=== PATIENT | male | born 1955 | race Caucasian/White ===

== ENCOUNTER 2016-07-06 00:26 | Inpatient (IN) | payer MEDICARE, OTHER ==
--- NOTE | ~2016-07-06 | HP ---
Unit #: [id number] #: [id number] Patient: JULIO C KONG [id number] [address] [address] [id number] I MR#: [id number] NAME: JULIO C KONG ROOM: 331 Age: 60 Sex: M Admission Date: 07/06/2016 : 1955 Attending Physician: Lizeth Bridges M.D. Primary Care Physician: Tammy Mitchell M.D. HISTORY AND PHYSICAL CHIEF COMPLAINT Symptomatic ascites. HISTORY This 60-year-old type 2 diabetic male with CAD, chronic kidney disease, hypertension, was transferred from [facility] emergency department for symptomatic ascites. The patient, himself, is only a fair historian. Apparently he does develop intermittent ascites requiring paracentesis. He was last admitted to [facility] in March. Unfortunately, he has never been admitted to this facility in the past and we have no old records on file, nor were old records sent from [facility]. He tells me that three weeks ago he developed increasing abdominal swelling. He noticed some poor p.o. intake, mild cough with the above. He went to [facility] emergency department where he was noted to have symptomatic ascites. PAST MEDICAL HISTORY 1. CAD, status post CABG, PFO closure and AICD placement. The patient does have a history of atrial fibrillation and is anticoagulated. 2. BPH. 3. Chronic kidney disease. 4. Hyperlipidemia. 5. Hypertension. 6. COPD. 7. AODM. 8. Gout. 9. DJD. 10. Peripheral vascular disease. 11. Left leg surgery. ALLERGIES No known drug allergies. HOME MEDICATIONS I have a list without doses. This list includes: 1. Potassium chloride, one each day. 2. Synthroid daily. 3. Calcitriol daily. 4. Omeprazole, two tablets daily. 5. Flomax 0.4 mg b.i.d. 6. Metoprolol 25 mg daily. 7. Lipitor daily. 8. Coumadin, uncertain dose. Unit #: [id number] #: [id number] Patient: JULIO C KONG 9. Aspirin daily. 10. Iron sulfate b.i.d. 11. Magnesium b.i.d. 12. Bumex 1 mg t.i.d. FAMILY HISTORY Negative for CAD. SOCIAL HISTORY The patient lives alone. He drank in the past but no alcohol for at least 13 years. He is a lifelong nonsmoker. REVIEW OF SYSTEMS Notable for increasing abdominal swelling, CAD, above mentioned surgeries, BPH, chronic kidney disease, hyperlipidemia, hypertension, COPD, diabetes, gout, DJD, peripheral vascular disease. All other systems were reviewed and are negative. REVIEW OF SYSTEMS Notable for cough, fever, shortness of breath, PTSD, aortic insufficiency, anxiety, depression, reflux, asthma, DJD, JOSÉ, hypertension, T and A, D and C, hysterectomy, cholecystectomy, T and A. All other systems reviewed are negative. PHYSICAL EXAMINATION GENERAL APPEARANCE: Pleasant, somewhat obese 60-year-old male, currently in no acute distress. VITAL SIGNS: Blood pressure 106/60, O2 saturation 96%, heart rate 74, respirations 18. HEENT: Eyes PERRLA. Extraocular muscles are intact. Pharynx is benign. NECK: Supple without adenopathy or thyromegaly. CHEST: Diminished breath sounds. CARDIAC: Normal S1 and S2. Soft systolic murmur. ABDOMEN: Bowel sounds are present. Fluid wave is present. Distended abdomen with ascites but nontender. No hepatosplenomegaly or masses. EXTREMITIES: With chronic venous stasis changes. Pedal pulses are markedly diminished. No ulcers on the feet. NEUROLOGIC EXAM: The patient is awake, alert, oriented. Cranial nerves are intact. Equal strength throughout. DIAGNOSTIC STUDIES LABORATORY: Labs prior to transfer - hematocrit 37.4, white blood count 3.5, normal platelet count. INR is 1.35, BNP 1628. SMA-12 - creatinine 2.2, glucose 168, BUN 39. IMAGING: Chest x-ray - mild vascular congestion. EKG revealed a ventricular paced rhythm, rate 76. ASSESSMENT 1. Symptomatic ascites: The patient requires intermittent paracentesis. I believe the ascites is related to his cardiac and kidney disease. The patient usually is admitted to [facility]. Will obtain records. 2. Chronic kidney disease. 3. Coronary artery disease, status post automatic implantable cardioverter defibrillator, coronary artery bypass graft, on Coumadin Unit #: [id number] #: [id number] Patient: JULIO C KONG for history of atrial fibrillation. 4. Gout. 5. Benign prostatic hypertrophy. 6. Adult onset diabetes mellitus. 7. Hypothyroidism. PLANS 1. Need old records. 2. Large volume paracentesis in the morning. 3. Recheck labs in the morning and check coags. 4. Verify home medicines. Dictated by Satnam Colbert/liseth TD: 07/06/2016 06:52 JOB #: [id number] HISTORY AND PHYSICAL Page 1 of 1 X Lizeth Bridges MD X HISTORY AND PHYSICAL
--- NOTE | ~2016-07-06 | CO ---
Unit #: [id number] #: [id number] Patient: JULIO C KONG [id number] [facility]. [place], [place] [address] [id number] I MR#: [id number] NAME: JULIO C KONG ROOM: 331 Age: 60 Sex: M Admission Date: 07/06/2016 : 1955 Attending Physician: Anuja Mccollum M.D. Primary Care Physician: Tammy Mitchell M.D. Consultation Date: 07/07/2016 CONSULTATION REPORT REASON FOR CONSULTATION Chronic kidney disease. HISTORY OF PRESENT ILLNESS Mr. Kong is a 60-year-old gentleman. We are asked to evaluate for renal failure. He was admitted to this hospital on 07/06/2016 with complaints of symptomatic ascites, which has been attributed to his advanced heart and kidney failure. He has had recurrent paracentesis before. From a Renal standpoint, the patient reports he has been aware of having kidney disease for approximately 7 years. He was in [place], [place] and used to follow with Dr. Ezekiel Varela, a load manager who had a practice there. Since he left [place], the patient reports he has been unable to make the trips in to [place] to see a load manager there. [facility] had seen him on several occasions when he has been admitted to [facility] for cardiovascular issues. He does not see a load manager in the outpatient setting. He reports that he has had diabetes for approximately 12 years and his brother was on dialysis. He reports he has had a kidney and/or bladder infection at one point, but otherwise he has not experienced stones or other complications that is aware of related to his kidneys. He has occasionally taken nonsteroidals in the past for pain. At the time of this admission, he reports that he has not been given any kidney related problems except for his accumulating fluid. PAST MEDICAL HISTORY Significant for: 1. Acute on chronic systolic and diastolic heart failure with right-sided heart failure and severe pulmonary hypertension. He was admitted to [facility] in 03/2016 and found to have ejection fraction of approximately 22%. He was then felt to be a candidate for transplantation or VAD. 2. Permanent atrial fibrillation with an implanted pacemaker. 3. Recurrent ascites related to above. 4. Valvular heart disease with a history of prior mitral valve repair, which he reports was done at [facility]. 5. Pulmonary hypertension. 6. Dyslipidemia. 7. Hypertension. 8. History of nonsustained ventricular tachycardia. 9. Stage 3 chronic kidney disease with a cardiorenal component. 10. Type 2 diabetes mellitus. 11. Obesity. 12. Peripheral arterial disease, status post left peroneal atherectomy and Unit #: [id number] #: [id number] Patient: JULIO C KONG left posterior tibial atherectomy/angioplasty. 13. Gout. 14. History of upper GI bleed. 15. Sleep apnea. 16. COPD. 17. Coronary artery disease. 18. Hypothyroidism. FAMILY HISTORY Significant for diabetes mellitus in brother who is on dialysis. Sister with history significant for alcohol use in the past, but not currently. SOCIAL HISTORY He does not smoke. MEDICATIONS AT ADMISSION Included potassium chloride, Synthroid, calcitriol, omeprazole, Flomax, metoprolol, Lipitor, Coumadin, aspirin, iron sulfate, magnesium, and Bumex 1 mg t.i.d. REVIEW OF SYSTEMS Notable for progressive abdominal swelling. He has had some mild shortness of breath. He has chronic leg swelling and occasional tingling, which he attributes to gout. PHYSICAL EXAMINATION GENERAL: At the time of evaluation, he appeared sitting comfortably in bed. He was awake, alert, and very appropriate. I used a translating phone service to interview the patient. VITAL SIGNS: At the time of evaluation, he was afebrile at 97.4 with blood pressure of 96/60 with heart rate of 69 and a respiratory rate of 18, his O2 saturations on room air were 97%. HEENT: Head was normocephalic and atraumatic. Pupils are equal and reactive. Sclera and conjunctiva were clear. NECK: Supple without adenopathy. There was no jugular venous distention. LUNGS: Clear to auscultation bilaterally. HEART: Had a regular rate with diffuse 3/6 murmur over the precordium. He was noted to have a paced rhythm on the monitor. He had a sternal scar consistent with a prior open heart procedure. ABDOMEN: Distended and protuberant. His umbilicus was distended also. It was soft and nontender. No masses or organomegaly could be defined. GENITAL: Deferred. EXTREMITIES: Show chronic stasis changes with a woody feeling to the skin and evidence of prior scarring. He had approximately 1+ edema. SKIN: Unremarkable except for the stasis changes in his lower extremities. No other wounds or rashes were noted. NEUROLOGIC: Unremarkable. DIAGNOSTIC STUDIES LABORATORY RESULTS: At time of admission were notable for serum creatinine of 2.0 with BUN of 34. Electrolytes were notable for serum potassium of 3.8 and bicarbonate of 30. His albumin was low at 2.7. His hemoglobin was mildly anemic with 11.4 with white count of 3.1 and platelet count of 135,000. No urine studies are currently available. Through [facility]'s EMR, we have laboratory data dating back to 2013. Most of the period of time, his serum creatinine has been running in the mid to high 3s. At the time of his last discharge on 04/05/2016, his serum Unit #: [id number] #: [id number] Patient: JULIO C KONG creatinine was 2.79. By comparison, his serum creatinine on this admission is better. The elevated BUN and creatinine ratio is suggestive of a prerenal type picture consistent with his advanced heart failure. His serum bicarbonate typically runs in the high 20s to low 30s again consistent with diabetic use and limited cardiac output. The patient does not appear to be nephrotic based on limited studies in 09/2015. However, back in 2013, he was known to have microalbuminuria. We do not have recent values available to us. A renal ultrasound done in 09/2015 was notable for decent sized kidney of approximately 11.5 and 10 cm respectively. He was noted to have a cyst in the right kidney, but otherwise no significant anatomic issues. There was suggestion of increased cortical atrophy consistent with chronic renal disease. A CT scan done in 03/2016 confirmed the findings of a 2.9 cm diameter cyst in the right kidney, but otherwise again no significant renal pathology. IMPRESSION 1. Chronic kidney disease related to diabetes mellitus and cardiorenal syndrome. At this point in time, his renal function appears relatively stable and somewhat improved compared to his recent past history. Given his severe heart failure and severe pulmonary hypertension, volume accumulation will be of ongoing process. At the moment peripherally, this appears relatively decent. It is noted that he has required recurrent paracentesis. From a Renal standpoint, I would maintain his current diuretics. I would fear that pushing him too hard would put him in to a more severe prerenal syndrome and perhaps trigger an acute kidney injury. It may be worthwhile to set up for periodic paracentesis in an outpatient setting in [place], [place]. 2. Heart failure. Again, this appears reasonably stable. 3. Recurrent paracentesis. It is noted that the patient has had abdominal paracentesis at this visit. 4. Diabetes. This is another significant risk factor. Currently, managed by PCP in [place], [place]. Dictated by... Doyle Manzanares M.D. ANSON/alan TD: 07/07/2016 23:41 JOB #: [id number] CONSULTATION REPORT Page 1 of 1 X Doyle Manzanares Jr, MD X CONSULTATION REPORT
--- NOTE | ~2016-07-06 | DS ---
Unit #: [id number] #: [id number] Patient: JULIO C KONG [id number] [address] [address] [id number] I MR#: [id number] NAME: JULIO C KONG ROOM: 331 Age: 60 Sex: M Admission Date: 07/06/2016 : 1955 Discharge Date: Attending Physician: Anuja Mccollum M.D. Primary Care Physician: Tammy Mitchell M.D. DISCHARGE SUMMARY DISCHARGE DIAGNOSES 1. Symptomatic ascites requiring intermittent paracentesis. He had a paracentesis here and 13.2 L has been removed. 2. Chronic kidney disease most likely stage 3. 3. Coronary artery disease, status post automatic implant double cardioverter defibrillator. 4. Coronary artery bypass graft. 5. Atrial fibrillation on Coumadin, subtherapeutic international normalized ratio. Coumadin was on hold secondary to paracentesis on admission. 6. Gout. 7. Benign prostatic hypertrophy. 8. Diabetes mellitus type 2, uncontrolled. 9. Hypothyroidism. CONSULTATION Dr. Manzanares. PROCEDURE The patient had a paracentesis and 11.2 L has been removed. DIAGNOSTIC STUDIES LABORATORY: Sodium 142, potassium 3.8, creatinine 2. Liver enzymes normal. Albumin 2.7. Magnesium 2.1. INR 1.4. WBC 3.1, hemoglobin 11.4, platelets 135,000. Troponins 0.08. ALLERGIES None. DISCHARGE MEDICATIONS 1. Flomax 0.4 p.o. b.i.d. 2. Toprol XL 25 p.o. daily. 3. Bumex 1 mg p.o. three times daily. 4. Lipitor 20 daily. 5. Aspirin 81 daily. 6. Protonix 40 daily. 7. Levothyroxine 0.075 mg p.o. daily. 8. Calcitriol 0.25 mcg p.o. daily. 9. Coumadin 5 mg daily. HOSPITALIZATION COURSE A 60 year old admitted because of ascites. Ascites: Symptomatic problem. The patient had a paracentesis, 13.2 L Unit #: [id number] #: [id number] Patient: JULIO C KONG removed, most likely secondary to his kidney disease. He usually follows at [facility]. Chronic kidney disease, stage 3: Stable. Atrial fibrillation: Subtherapeutic INR. Continue Coumadin. I gave prescription for that. Hypothyroidism: Continue with levothyroxine. Diabetes mellitus type 2: Diet controlled. Currently, his sugars are 86. DISCHARGE INSTRUCTIONS The patient will be discharged home with home health. PT/INR check daily for three days, follow with family physician with result. I discussed with Dr. Manzanares. He said to continue with Bumex 1 mg three times daily. Follow with family physician in one week time. Follow with his neurologist in two weeks' time. Discharge time taken is 31 minutes. Dictated by... Anuja Mccollum M.D. Cahrity TD: 07/07/2016 16:49 JOB #: [id number] DISCHARGE SUMMARY Page 1 of 1 X Anuja Mccollum MD X DISCHARGE SUMMARY
--- NOTE | ~2016-07-06 | XA170 ---
[facility] A Service of [facility] & [facility] RADIOLOGY TEXT RESULTS PATIENT: JULIO C KONG LOCATION: C3A 331- : 54 UNIT #: [id number] AGE: [address]: Anuja Mccollum MD SEX: M ORDER DR: [id number] [facility]. [place], [place] [address] [id number] I MR#: [id number] Acc #: [id number] NAME: JULIO C KONG : 1955 SEX: M STUDY DATE/TIME: 07/06/2016 13:14 UNIT: C3A PCU ROOM: [facility] STUDY DESCRIPTION: XA Paracentesis W Image Attending Physician: Anuja Mccollum M.D. Ordering Physician: Lizeth Bridges M.D. Primary Care Physician: Tammy Mitchell M.D. MEDICAL IMAGING REPORT This report is preliminary unless electronic signature is present EXAM Ultrasound-guided paracentesis INDICATION Ascites PROCEDURE The risks, benefits, and alternatives to the procedure were explained to the patient and signed, informed consent was obtained. He was placed supine on the stretcher. A preliminary ultrasound of the abdomen was performed which demonstrated a large volume of ascites. This image was permanently saved. Overlying skin was marked. Patient was prepped and draped in the usual sterile fashion. Time-out was performed as per protocol. Skin and subcutaneous tissues were anesthetized with buffered lidocaine. Yueh catheter was advanced with aspiration of serous material. Catheter was hooked to suction tubing. There was evacuation of a total of 13.2 L of serous material. Catheter was then removed and manual pressure was applied until hemostasis was obtained. Patient tolerated the procedure well and there were no immediate complications. IMPRESSION Technically successful ultrasound guided paracentesis with evacuation of 13.2 L of serous material. Ultrasound was used during the procedure permanent images were saved. Dictated by... Bere Machado M.D. THIS IS AN ELECTRONICALLY VERIFIED REPORT Bere Machado M.D. at 07/07/2016 4:38 PM AFF/jw TD: 07/07/2016 09:33 [facility] A Service of [facility] RADIOLOGY TEXT RESULTS PATIENT: JULIO C KONG LOCATION: [facility] 331-01 : 54 UNIT #: [id number] AGE: [address]: Anuja Mccollum MD SEX: M ORDER DR: JOB #: [id number] MEDICAL IMAGING REPORT Page 1 of 1 COPY
[2016-07-06 08:27] LABS: BASOPHIL% 1.1 % (0-2.5); DIFF IND NO; EOSINOPHIL# 0.1 X10e3 (0-0.7); HEMATOCRIT 34.6 % (38.0-50.0); HEMOGLOBIN 11.1 gm/dL (13.0-16.0); LYMPHOCYTE# 0.5 X10e3 (1.0-3.5); LYMPHOCYTE% 14.2 % (17.0-45.0); MEAN CELL VOLUME 88.2 FL (83-96); MEAN CORPUSCULAR HEMOGLOBIN 28.2 PG (28-34); MEAN PLATELET VOLUME 8.3 FL (6.5-11.5); MONOCYTE# 0.2 X10e3 (0-1.0); MONOCYTE% 6.2 % (3.0-12.0); NEUTROPHIL# 2.4 X10e3 (1.5-7.1); NEUTROPHIL% 75.5 % (40-75); PLATELET COUNT 141 X10e3 (140-420); RED BLOOD COUNT 3.93 X10e (3.90-5.60); RED CELL DISTRIBUTION WIDTH 17.2 % (11.0-15.5); WHITE BLOOD COUNT 3.2 X10e3 (4.0-10.5)
[2016-07-06 08:44] LABS: INR 1.4; PARTIAL THROMBOPLASTIN TIME 28.1 SECONDS (23.5-31.3); PROTHROMBIN TIME (PATIENT) 14.8 SECONDS (9.6-11.5)
[2016-07-06 09:07] LABS: ALBUMIN SERUM 3.3 g/dL (3.5-5.0); BILIRUBIN,TOTAL 0.8 mg/dL (0.2-2.0); BUN/CREATININE RATIO 17.61; CALCIUM SERUM 8.8 mg/dL (8.4-10.2); CREATININE SERUM 2.1 mg/dL (0.6-1.4); GLOM FILT RATE Estimated 34.3 mL/min (>60); POTASSIUM 3.6 mmol/L (3.5-5.1); PROTEIN TOTAL SERUM 7.1 g/dL (6.0-8.3)
[2016-07-06 12:13] LABS: MB 2.6 ng/ml
[2016-07-06 15:27] LABS: BF TOTAL NUCLEATED CELL COUNT 322 CMM (0-100); BODY FLUID APPEARANCE CLEAR; BODY FLUID SOURCE ASCITES
[2016-07-06 15:34] LABS: BODY FLUID RBC <10000 CMM
[2016-07-07 08:04] LABS: HEMATOCRIT 36.4 % (38.0-50.0); HEMOGLOBIN 11.4 gm/dL (13.0-16.0); MEAN CELL VOLUME 88.7 FL (83-96); MEAN CORPUSCULAR HEMOGLOBIN 27.8 PG (28-34); MEAN CORPUSCULAR HGB CONC 31.4 g/dL (30-36); MEAN PLATELET VOLUME 8.8 FL (6.5-11.5); RED BLOOD COUNT 4.1 X10e (3.90-5.60); RED CELL DISTRIBUTION WIDTH 16.7 % (11.0-15.5); WHITE BLOOD COUNT 3.1 X10e3 (4.0-10.5)
[2016-07-07 08:15] LABS: INR 1.4; PROTHROMBIN TIME (PATIENT) 14.7 SECONDS (9.6-11.5)
[2016-07-07 08:29] LABS: ALBUMIN SERUM 2.7 g/dL (3.5-5.0); BILIRUBIN,TOTAL 1.1 mg/dL (0.2-2.0); CALCIUM SERUM 8.7 mg/dL (8.4-10.2); GLOM FILT RATE Estimated 36.3 mL/min (>60); MAGNESIUM 2.1 mg/dL (1.6-3.0); PHOSPHOROUS 3.6 mg/dL (2.5-4.6); POTASSIUM 3.8 mmol/L (3.5-5.1)
[2016-07-07 14:41] LABS: URINE APPEARANCE CLEAR; URINE BILIRUBIN NEG (NEG); URINE BLOOD NEG (NEG); URINE COLOR YELLOW; URINE GLUCOSE NEG (NEG); URINE KETONE NEG (NEG); URINE LEUKOCYTE ESTERASE NEG (NEG); URINE NITRATE NEG (NEG); URINE PROTEIN NEG (NEG); URINE SPECIFIC GRAVITY 1.008 (1.003-1.035); URINE UROBILINOGEN 0.2 MG/DL (NEG)
[2016-07-07 14:50] LABS: CREATININE,RANDOM URINE 31 mg/dL; POTASSIUM,URINE RANDOM 21 mmol/L; SODIUM URINE RANDOM 97 mmol/L; TOTAL PROTEIN,RANDOM URINE <10 mg/dl (<10)
[2016-07-07] MEDS ORDERED: TOPROL XL PO (16:29)
[2016-07-07] MEDS ORDERED: FLOMAX0.4 M1 PO (16:29)
[2016-07-07] MEDS ORDERED: LIPITOR20 MG PO (16:30)
[2016-07-07] MEDS ORDERED: BUMETANIDE2 M1 PO (16:30)
[2016-07-07] MEDS ORDERED: ASPIRIN81 M2 PO (16:31)
[2016-07-07] MEDS ORDERED: LEVOTHYROXINE75 MCG PO (16:31)
[2016-07-07] MEDS ORDERED: PROTONIX PO (16:31)
[2016-07-07] MEDS ORDERED: COUMADIN5 MG PO (16:32)
[2016-07-07] MEDS ORDERED: CALCITRIOL0.25 MCG PO (16:32)
[2016-08-06] MEDS ORDERED: FERRO-TIME325 MG PO (04:27)
[2016-08-06] MEDS ORDERED: MAG-OXIDE400 MG PO (04:28)
[2016-08-06] MEDS ORDERED: VITAMIN D31000 UNIT PO (04:29)
[2016-08-06] MEDS ORDERED: POTASSIUM CHLO10 MEQ PO (05:02)
== END 2016-07-07 17:47 | disposition home health service (06) | DRG 948 ==
LOC: C3A PCU 00:26
PROVIDERS: Internal Medicine
PROC: 0W9G30Z Drainage of Peritoneal Cavity with Drainage Device, Percutaneous Approach (ICD-10-PCS; 2016-07-06)
PROC: 3E0234Z Introduction of Serum, Toxoid and Vaccine into Muscle, Percutaneous Approach (ICD-10-PCS; principal; 2016-07-07)
DX: R18.8 Other ascites (principal); I47.2 Ventricular tachycardia; E11.22 Type 2 diabetes mellitus with diabetic chronic kidney disease; I13.0 Hypertensive heart and chronic kidney disease with heart failure and stage 1 through stage 4 chronic kidney disease, or unspecified chronic kidney disease; I50.42 Chronic combined systolic (congestive) and diastolic (congestive) heart failure; I25.10 Atherosclerotic heart disease of native coronary artery without angina pectoris; Z95.1 Presence of aortocoronary bypass graft; Z95.810 Presence of automatic (implantable) cardiac defibrillator; N40.0 Benign prostatic hyperplasia without lower urinary tract symptoms; J44.9 Chronic obstructive pulmonary disease, unspecified; M19.90 Unspecified osteoarthritis, unspecified site; I73.9 Peripheral vascular disease, unspecified; Z79.82 Long term (current) use of aspirin; M10.9 Gout, unspecified; E03.9 Hypothyroidism, unspecified; I48.2 Chronic atrial fibrillation; I27.2 Other secondary pulmonary hypertension; E78.5 Hyperlipidemia, unspecified; N18.3 Chronic kidney disease, stage 3 (moderate); E66.9 Obesity, unspecified; Z23 Encounter for immunization; E11.65 Type 2 diabetes mellitus with hyperglycemia; Z79.84 Long term (current) use of oral hypoglycemic drugs; Z68.37 Body mass index [BMI] 37.0-37.9, adult
CPT/HCPCS: 80053; 81003; 82043; 82436; 82550; 82553; 82570; 82947; 83735; 84100; 84133; 84156; 84300; 84484; 85025; 85027; 85610; 85730; 87070; 87205; 89051; 90688; 94760

== ENCOUNTER 2016-08-06 05:45 | Inpatient (IN) | payer MEDICARE, OTHER ==
--- NOTE | ~2016-08-06 | US8 ---
[facility] A Service of [facility] & [facility] RADIOLOGY TEXT RESULTS PATIENT: JULIO C KONG LOCATION: [facility] 560-01 : 54 UNIT #: [id number] AGE: [address]: Cheikh Car MD SEX: M ORDER DR: [id number] [facility] [address] [facility]. [place], [place] [address] [id number] I MR#: [id number] Acc #: [id number] NAME: JULIO C KONG : 1955 SEX: M STUDY DATE/TIME: 08/06/2016 12:37 UNIT: [facility] ROOM: [facility] STUDY DESCRIPTION: US Abdominal Wall/Quadrant Attending Physician: Anuja Mccollum M.D. Ordering Physician: Anuja Mccollum M.D. Primary Care Physician: Tammy Mitchell M.D. MEDICAL IMAGING REPORT This report is preliminary unless electronic signature is present EXAM Abdominal wall quadrant ultrasound. DATE OF EXAM 08/06/2016 at 1237 hours. INDICATIONS Abdominal distension. Evaluate for ascites. FINDINGS Limited evaluation was obtained in the 4 quadrants of the abdomen. The study demonstrates a large volume of ascites. IMPRESSION Large volume of ascites is present in all 4 quadrants. Dictated by... Sharath Hampton Jr., M.D. THIS IS AN ELECTRONICALLY VERIFIED REPORT Sharath Hampton Jr., M.D. at 08/09/2016 8:00 AM AASHISH/adela TD: 08/06/2016 16:05 JOB #: [id number] MEDICAL IMAGING REPORT Page 1 of 1 COPY
--- NOTE | ~2016-08-06 | DS ---
Unit #: [id number] #: [id number] Patient: JULIO C KONG [id number] [address] [place], [place] [address] [id number] I MR#: [id number] NAME: JULIO C KONG ROOM: 560 Age: 60 Sex: M Admission Date: 08/06/2016 : 1955 Discharge Date: 08/10/2016 Attending Physician: Cheikh Car M.D. Primary Care Physician: Tammy Mitchell M.D. DISCHARGE SUMMARY FOREPART RASPER Dr. Wild Daniels. PROCEDURES DONE EGD, colonoscopy, and ultrasound-guided paracentesis. EGD and colonoscopy findings were essentially normal in this hospitalization. ADMITTING DIAGNOSIS 1. Anemia, possibly thought to be iron deficiency with suspected blood loss versus secondary to chronic kidney disease. 2. Other medical problems include: History of symptomatic ascites requiring intermittent paracentesis, CKD stage 3, history of coronary artery disease status post AICD placement, history of CABG, history of AFib currently on anticoagulation at the time of hospitalization, gout, BPH, diabetes mellitus type 2, hypothyroidism, peripheral vascular disease surgery, and left leg surgery. HISTORY OF PRESENTING ILLNESS Patient is a 60-year-old man admitted with a chief complaint of black stools. Initially, it was thought to be secondary to GI bleed. He was seen by Dr. Daniels, gastroenterology. He had EGD and colonoscopy, which came back essentially normal. He was transfused blood. His hemoglobin is stable at this point around 7.7 on the day of the discharge. On the initial hospitalization, it was 5.9. Dr. Daniels thought it was not secondary to GI bleed and thought it was secondary to chronic kidney disease. He was given iron infusions for three days. He also had an ultrasound-guided paracentesis. The patient tolerated the procedure of ultrasound-guided paracentesis well. He is doing clinically stable. I spoke with Dr. Daniels. He recommended the patient to be okay to be discharged. I spoke with the patient at length and he is agreeable to go home. Will get his third dose of iron infusion today and requested him to follow with his primary care. DIAGNOSTIC STUDIES LABORATORY: His diagnostic workup on the day of the discharge includes glucose of 123, BUN 28, creatinine 1.7, and albumin 2.6. WBC 4, hemoglobin 7.7, and platelet count is 171. PHYSICAL EXAMINATION On the day of the discharge, his physical examination: VITAL SIGNS: Temperature 98.2, pulse rate 72, respirations 22, and blood pressure 94/51. GENERAL APPEARANCE: Patient is alert and oriented x3. Lying in the bed. No acute distress. Unit #: [id number] #: [id number] Patient: JULIO C KONG HEENT: Normocephalic and atraumatic. No icterus. PERRLA. Extraocular movements intact. NECK: Supple. No JVD. HEART: S1 and S2 irregular. ABDOMEN: Soft and nontender. EXTREMITIES: Edema present. DISCHARGE MEDICATIONS His discharge medications include: 1. Flomax 0.4 mg twice a day. 2. Magnesium oxide 800 mg twice a day. 3. I am holding his Coumadin, mainly because of his anemia and thought to be secondary to GI bleed. 4. Bumex 2 mg was changed to 1 mg p.o. 3 times a day. 5. Lipitor 20 mg at bedtime. 6. Ferrous sulfate 1 tab p.o. b.i.d. 7. Aspirin 81 mg daily. 8. Protonix 40 mg daily. 9. Synthroid 75 mcg daily. 10. KCl 10 mg p.o. daily. 11. Rocaltrol 0.25 mcg daily. 12. Vitamin D3 1000 units p.o. every day. 13. Metoprolol XL 25 mg p.o. daily. All the discharge instructions were explained in detail with the patient. I spoke with the complex case manager and requested her to arrange for transportation for him. Total time spent on this case: 35 minutes. Dictated by... Satnam Becerril TD: 08/11/2016 09:17 JOB #: [id number] DISCHARGE SUMMARY Page 1 of 1 X X DISCHARGE SUMMARY
--- NOTE | ~2016-08-06 | XA170 ---
[facility] A Service of [facility] RADIOLOGY TEXT RESULTS PATIENT: JULIO C KONG LOCATION: C5B 560-01 : 54 UNIT #: [id number] AGE: [address]: Cheikh Car MD SEX: M ORDER DR: [id number] [facility]. [place], [place] [address] [id number] I MR#: [id number] Acc #: [id number] NAME: JULIO C KONG : 1955 SEX: M STUDY DATE/TIME: 08/08/2016 7:49 UNIT: C5B ROOM: [facility] STUDY DESCRIPTION: XA Paracentesis W Image Attending Physician: Cheikh Car M.D. Ordering Physician: Anuja Mccollum M.D. Primary Care Physician: Tammy Mitchell M.D. MEDICAL IMAGING REPORT This report is preliminary unless electronic signature is present EXAM Ultrasound-guided paracentesis HISTORY Refractory and recurrent ascites. PROCEDURE Procedure, attendant risks, and options were discussed with Mr. Kong. He understands and wishes to proceed. He has had the procedure performed previously at this institution most recently on July 06. Ultrasound study was performed. The left side of the abdomen was chose and skin was prepped with Chlorhexidine solution and draped with a sterile drape. Utilizing maximal sterile barrier technique including sterile gloves and local anesthesia, a 5-Sami catheter was introduced into the peritoneal space and 7.7 L of fluid was removed and discarded. A permanent ultrasound image was recorded. Needle was removed, hemostasis achieved, and the patient discharged. CONCLUSION A technically successful ultrasound-guided paracentesis (therapeutic only) with removal of 7.7 L of fluid. Dictated by... Darryl Harper M.D. THIS IS AN ELECTRONICALLY VERIFIED REPORT Darryl Harper M.D. at 08/08/2016 4:52 PM J CARLOS/dajuan TD: 08/08/2016 11:11 JOB #: [id number] [facility] A Service of [facility] RADIOLOGY TEXT RESULTS PATIENT: JULIO C KONG LOCATION: C5 560-01 : 53 UNIT #: [id number] AGE: [address]: Cheikh Car MD SEX: M ORDER DR: MEDICAL IMAGING REPORT Page 1 of 1 COPY
--- NOTE | ~2016-08-06 | CO ---
Unit #: [id number] #: [id number] Patient: JULIO C KONG [id number] [place], [place] [address] [id number] I MR#: [id number] NAME: JULIO C KONG ROOM: 560 Age: 60 Sex: M Admission Date: 08/06/2016 : 1955 Attending Physician: Anuja Mccollum M.D. Primary Care Physician: Tammy Mitchell M.D. Consultation Date: 08/06/2016 CONSULTATION REPORT PRIMARY CARE PHYSICIAN Tammy Mitchell M.D. REASON FOR CONSULTATION "GI bleed" and anemia. HISTORY OF PRESENT ILLNESS Mr. Kong is a 60-year-old gentleman who was admitted with extreme fatigue, lethargy and weakness. He says he is unable to walk around because he is feeling so weak and tired. The patient lives by himself and used to be a heavy drinker, but has not had any alcohol for the past 12 to 13 years. There are no previous records of his evaluation here except for an admission last month. There is no history of overt GI bleed in the form of hematemesis, melena. The patient mentions stools are dark and black, but he is unable to provide any further history. PAST MEDICAL HISTORY Significant for history of type 2 diabetes, COPD, gout, degenerative joint disease, peripheral arterial disease, chronic kidney disease, hypertension, hyperlipidemia, benign prostatic hypertrophy, coronary artery disease, status post coronary artery bypass graft and AICD placement, also history of atrial fibrillation, on long-term anticoagulation. PAST SURGICAL HISTORY Included coronary artery bypass graft surgery in the past. ALLERGIES He has no known drug allergies. MEDICATIONS Home medications include warfarin 5 mg p.o. daily, bumetanide, calcitriol, levothyroxine, metoprolol, ferrous sulphate, magnesium oxide, potassium chloride, cholecalciferol, omeprazole, tamsulosin, aspirin, and atorvastatin. FAMILY HISTORY None of colon, pancreatic cancer, or liver disease. SOCIAL HISTORY Lives by himself. Does not smoke and never smoked in his life. He used to be a heavy drinker until about 13 or 14 years ago. REVIEW OF SYSTEMS Unit #: [id number] #: [id number] Patient: JULIO C KONG Detailed review of organ system is significant for swelling over the lower extremities, extreme fatigue, lethargy, and weakness, also history of possibly melena, history of increasing abdominal distention, and ascites. There is no history of headache, seizures, chest pain, or syncope. No history of cough, expectoration, or hemoptysis. No history of dysuria, hematuria, or pyuria. No history of focal seizures or focal extremity weakness. Rest of the review of organ systems is unremarkable. PHYSICAL EXAMINATION GENERAL: He appears quite sick and ill and extremely pale. VITAL SIGNS: Indicate a temperature of 98.1, pulse 69 per minute and regular, respiratory rate 16, blood pressure is 198/47. He weighs 206 pounds. Baseline weight is about 230 pounds in the past. HEENT: He has moderately severe pallor. There being no icterus, lymphadenopathy, and grade 2 to 3 pitting peripheral edema. CARDIOVASCULAR: Confirms normal heart sounds. No murmurs on auscultation. LUNGS: Bilateral symmetric diminished air entry. ABDOMEN: Diffusely distended, most likely from ascites with an umbilical hernia in place. No liver or spleen is palpable and there is no area of localized rigidity, rebound, guarding, or tenderness. Hernia site is normal. DIAGNOSTIC STUDIES LABORATORY RESULTS: Shows a hemoglobin of 5.9, platelet count of 137, white count of 3.4. Red cell indices are normochromic and normocytic. Urinalysis is unremarkable. INR is 2.5. Serum chemistry shows a BUN and creatinine of 73 and 2.1. These values were 34 and 2 last month. Potassium is 3.7, albumin is 2.7. IMAGING STUDIES: I do not find any imaging studies in this gentleman. Incidentally had a paracentesis of 13 L last month, but the fluid was not sent for any testing so as to find out albumin gradients. CLINICAL IMPRESSION 1. The patient with severe symptomatic anemia, possible history of gastrointestinal bleed, possibly melena. 2. Underlying diabetes with chronic kidney disease with acute on chronic kidney injury; pancytopenia possibly from underlying liver disease; ascites, the etiology of which could be multifactorial; hypoalbuminemia. MANAGEMENT PLAN The patient is coagulopathic, would suggest stopping his ferrous sulfate or ferrous gluconate and optimizing his INR and consider endoscopic and colonoscopic evaluation in the next couple of days. The pros and cons of these procedures and potential risks, and complications were discussed with the patient and he was reassured. Thank you for asking me to see this pleasant gentleman. I appreciate the consult. Dictated by... Satnam Remy/alan TD: 08/06/2016 08:59 JOB #: [id number] Unit #: [id number] #: [id number] Patient: JULIO C KONG CC: Subha Turner M.D. CONSULTATION REPORT Page 1 of 1 X Wild Daniels MD X CONSULTATION REPORT
--- NOTE | ~2016-08-06 | HP ---
Unit #: [id number] #: [id number] Patient: JULIO C KONG [id number] [address] [address] [id number] I MR#: [id number] NAME: JULIO C KONG ROOM: 560 Age: 60 Sex: M Admission Date: 08/06/2016 : 1955 Attending Physician: Anuja Mccollum M.D. Primary Care Physician: Tammy Mitchell M.D. HISTORY AND PHYSICAL CHIEF COMPLAINT GI bleed. HISTORY OF PRESENT ILLNESS This is a 60 year old admitted because of GI bleed. According to him, he is having very severe fatigue, lethargy and weakness since one week. He is unable to walk. No chest pain. No shortness of breath. No vomiting but he mentioned the stools are dark and black. No abdominal pain. No dizziness or syncope. PAST MEDICAL HISTORY 1. History of symptomatic ascites requiring intermittent paracentesis. 2. Chronic kidney disease stage 3. 3. Coronary artery disease status post automatic implantable cardioverter defibrillator. 4. CABG. 5. Atrial fibrillation on Coumadin. 6. Gout. 7. BPH. 8. Diabetes mellitus type 2 uncontrolled. 9. Hypothyroidism. 10. Degenerative joint disease. 11. Peripheral vascular disease. 12. Left leg surgery. SOCIAL HISTORY The patient lives alone, heavy alcohol in the past, lifelong nonsmoker. FAMILY HISTORY Negative for coronary artery disease. ALLERGIES None. CURRENT HOME MEDICATIONS 1. Flomax 0.4 mg p.o. b.i.d. 2. Toprol XL 25 mg daily. 3. Bumex 2 mg three times daily. 4. Lipitor 20 mg daily. 5. Aspirin 81 mg daily. 6. Protonix 40 mg daily. 7. Levothyroxine 75 mcg daily. 8. Rocaltrol 0.25 mcg p.o. daily. 9. Coumadin 5 mg daily. Unit #: [id number] #: [id number] Patient: JULIO C KONG 10. Ferrous sulfate one tablet p.o. b.i.d. 11. Magnesium oxide 800 mg b.i.d. 12. Vitamin D3 1,000 p.o. daily. 13. Potassium 10 mEq daily. REVIEW OF SYSTEMS No headache. No visual changes. The patient has a distended abdomen and leg swelling and chronic skin changes. Reviewed other systems with patient which are negative except as in HPI. PHYSICAL EXAMINATION GENERAL APPEARANCE: A 60 year old lying in bed, alert, oriented x3. VITAL SIGNS: Temperature 98.1. Pulse 69. Respiration 16. Blood pressure 98/47. HEENT: Pupils equal and reactive to light and accommodation. Dry mucosa present. NECK: Supple. HEART: S1, S2 heard. Regular rhythm. No murmurs. LUNGS: Clear to auscultation. ABDOMEN: Distended. Fluid present. Bowel sounds are present. EXTREMITIES: Bilateral pitting edema present. Bilateral chronic skin changes with hyperpigmentation present. NEUROLOGIC: Nonfocal. DIAGNOSTIC STUDIES LABORATORY: INR 2.5. WBC 3.4,hemoglobin 5.9, platelets 137. Sodium 138, potassium 3.7, creatinine 2.1, glucose 85. Vitamin B12 215, ferritin 117. ASSESSMENT AND PLAN This is a 60 year old admitted because of GI bleed. 1. GI bleed. Patient seen by Dr. Daniels. The patient will have EGD and colonoscopy. 2. Anemia secondary to acute blood loss. The patient is receiving blood transfusion. Monitor hemoglobin after that. 3. Atrial fibrillation. Hold Coumadin secondary to GI bleed. 4. Chronic kidney disease stage 3. Monitor closely because of GI bleed. 5. Diabetes and hypertension uncontrolled. Continue sliding scale. 6. Ascites with recurrent paracentesis. I am going to do ultrasound. 7. Bilateral SCDs and Protonix for GI prophylaxis. Dictated by Satnam Abdi/heike TD: 08/06/2016 12:02 JOB #: [id number] Unit #: [id number] #: [id number] Patient: JULIO C KONG HISTORY AND PHYSICAL Page 1 of 1 X Anuja Mccollum MD X HISTORY AND PHYSICAL
--- NOTE | ~2016-08-06 | OR ---
Unit #: [id number] #: [id number] Patient: JULIO C KONG [id number] [address] [place], [place] [address] [id number] I MR#: [id number] NAME: JULIO C KONG ROOM: 560 Date of Procedure: 08/08/2016 Admission Date: 08/06/2016 Surgeon: Wild Daniels M.D. : 1955 Attending Physician: Cheikh Car M.D. Primary Care Physician: Tammy Mitchell M.D. OPERATIVE REPORT PRIMARY CARE PHYSICIAN Tammy Mitchell M.D. PREOPERATIVE DIAGNOSES Iron-deficiency anemia and gastrointestinal bleed. PROCEDURES PERFORMED Upper gastrointestinal endoscopy as well as colonoscopy. POSTOPERATIVE DIAGNOSES For upper endoscopy: Completely normal examination up to third part of duodenum. For colonoscopy: Completely normal examination up to cecum and terminal ileum. The quality of the prep was excellent. No polyps, diverticula, or hemorrhoids were seen. RECOMMENDATIONS The patient will be given intravenous iron infusion and will restart her warfarin as well as resume diet. SEDATION USED MAC. DESCRIPTION OF PROCEDURE Following detailed explanation of potential risks and complications of upper endoscopy and a colonoscopy, namely perforation, bleeding, and complication related to sedation, the patient was brought to GI lab and laid in the left lateral decubitus position. Lubricated tip of the Olympus video upper endoscope was passed through the bite block into the proximal esophagus under direct vision. The entire esophageal mucosa was examined and appeared normal. Z-line was nicely demarcated, there being no esophagitis or hiatus hernia. The scope was then advanced into the gastric cavity and the latter was insufflated. Mucosa of the fundus, body, and antrum was examined and appeared unremarkable. Pylorus was intubated with visualization of the normal duodenal bulb and second and third part of the duodenum. Upon withdrawal and retroflexion, incisura, cardia, and greater curve examined and no additional findings were noted. The scope was then withdrawn in the distal esophagus. The entire esophageal mucosa was examined all the way up to pharynx and no additional findings were noted. The scope was then withdrawn. Unit #: [id number] #: [id number] Patient: JULIO C KONG The examination table was then turned by 180 degrees and the patient positioned for a colonoscopy. A digital rectal examination was performed, which was normal. Lubricated tip of the Olympus video colonoscope was inserted through the anus and advanced under direct vision. The scope was advanced past rectosigmoid into descending colon. No diverticula were noticed in this area. The scope tip was then navigated all the way up to cecum with visualization of the ileocecal valve and the appendiceal orifice. Preparation was excellent with good visualization and photodocumentation was obtained. Last several inches of terminal ileum were also visualized after intubation of the ileocecal valve and appeared normal. Successive segments of the colonic mucosa were examined upon withdrawal and appeared unremarkable. There being no polyps, mass lesions, AVMs, or diverticula. The patient did not have any hemorrhoids at anal verge. The scope was then withdrawn and the patient returned to the recovery area. She tolerated the procedure without any postprocedure complications. Dictated by... Satnam Remy/alan TD: 08/08/2016 21:18 JOB #: [id number] Tammy Mitchell M.D. OPERATIVE REPORT Page 1 of 1 X Wild Daniels MD X PROCEDURE OPERATIVE NOTE
[~2016-08-06 05:45] MED LIST: ASPIRIN81 M2 PO; BUMETANIDE2 M1 PO; CALCITRIOL0.25 MCG PO; COUMADIN5 MG PO; FERRO-TIME325 MG PO; FLOMAX0.4 M1 PO; LEVOTHYROXINE75 MCG PO; LIPITOR20 MG PO; MAG-OXIDE400 MG PO; POTASSIUM CHLO10 MEQ PO; PROTONIX PO; TOPROL XL PO; VITAMIN D31000 UNIT PO
[2016-08-06 07:22] LABS: BASOPHIL% 0.9 % (0-2.5); EOSINOPHIL# 0.1 X10e3 (0-0.7); HEMATOCRIT 18.6 % (38.0-50.0); LYMPHOCYTE# 0.5 X10e3 (1.0-3.5); LYMPHOCYTE% 14.4 % (17.0-45.0); MEAN CELL VOLUME 88.6 FL (83-96); MEAN CORPUSCULAR HEMOGLOBIN 28.1 PG (28-34); MEAN CORPUSCULAR HGB CONC 31.7 g/dL (30-36); MEAN PLATELET VOLUME 8.3 FL (6.5-11.5); MONOCYTE# 0.2 X10e3 (0-1.0); NEUTROPHIL# 2.6 X10e3 (1.5-7.1); NEUTROPHIL% 75.7 % (40-75); PLATELET COUNT 137 X10e3 (140-420); RED BLOOD COUNT 2.11 X10e (3.90-5.60); RED CELL DISTRIBUTION WIDTH 17.5 % (11.0-15.5); WHITE BLOOD COUNT 3.4 X10e3 (4.0-10.5)
[2016-08-06 07:24] LABS: HEMOGLOBIN 5.9 gm/dL (13.0-16.0)
[2016-08-06 07:25] LABS: DIFF IND YES
[2016-08-06 07:33] LABS: INR 2.5
[2016-08-06 07:35] LABS: PROTHROMBIN TIME (PATIENT) 27.7 SECONDS (9.6-11.5)
[2016-08-06 07:42] LABS: HYPOCHROMIA MOD; PLATELET ESTIMATE NORMAL (NORMAL); POIKILOCYTOSIS MOD
[2016-08-06 07:49] LABS: ALBUMIN SERUM 2.7 g/dL (3.5-5.0); BUN/CREATININE RATIO 34.76; CREATININE SERUM 2.1 mg/dL (0.6-1.4); POTASSIUM 3.7 mmol/L (3.5-5.1); PROTEIN TOTAL SERUM 6.2 g/dL (6.0-8.3)
[2016-08-06 10:25] LABS: FERRITIN 117 ng/mL (24-336)
[2016-08-06 10:29] LABS: FOLATE (FOLIC ACID) >23.6 ng/mL (>5.8)
[2016-08-06 11:47] LABS: IRON SERUM 28 ug/dL (45-182); TOTAL IRON BINDING CAPACITY 327 ug/dL (252-460); TRANSFERRIN 234 mg/dL (180-329); TRANSFERRIN SATURATION 9 % (20-50)
[2016-08-06 17:57] LABS: HEMATOCRIT 22.3 % (38.0-50.0); HEMOGLOBIN 7.3 gm/dL (13.0-16.0); MEAN CELL VOLUME 87.7 FL (83-96); MEAN CORPUSCULAR HEMOGLOBIN 28.6 PG (28-34); MEAN CORPUSCULAR HGB CONC 32.6 g/dL (30-36); MEAN PLATELET VOLUME 8.4 FL (6.5-11.5); RED BLOOD COUNT 2.54 X10e (3.90-5.60); RED CELL DISTRIBUTION WIDTH 16.2 % (11.0-15.5); WHITE BLOOD COUNT 3.3 X10e3 (4.0-10.5)
[2016-08-07 06:35] LABS: HEMATOCRIT 22.9 % (38.0-50.0); HEMOGLOBIN 7.4 gm/dL (13.0-16.0); MEAN CORPUSCULAR HEMOGLOBIN 28.8 PG (28-34); MEAN CORPUSCULAR HGB CONC 32.4 g/dL (30-36); MEAN PLATELET VOLUME 8.6 FL (6.5-11.5); RED BLOOD COUNT 2.58 X10e (3.90-5.60); RED CELL DISTRIBUTION WIDTH 17.2 % (11.0-15.5); WHITE BLOOD COUNT 3.2 X10e3 (4.0-10.5)
[2016-08-07 06:51] LABS: INR 1.8; PROTHROMBIN TIME (PATIENT) 19.4 SECONDS (9.6-11.5)
[2016-08-07 07:15] LABS: ALBUMIN SERUM 2.6 g/dL (3.5-5.0); BILIRUBIN,TOTAL 1.4 mg/dL (0.2-2.0); BUN/CREATININE RATIO 31.57; CALCIUM SERUM 7.8 mg/dL (8.4-10.2); CREATININE SERUM 1.9 mg/dL (0.6-1.4); GLOM FILT RATE Estimated 37.2 mL/min (>60); MAGNESIUM 2.6 mg/dL (1.6-3.0); POTASSIUM 3.4 mmol/L (3.5-5.1); PROTEIN TOTAL SERUM 5.8 g/dL (6.0-8.3)
[2016-08-08 00:35] LABS: MAGNESIUM 2.7 mg/dL (1.6-3.0); POTASSIUM 3.4 mmol/L (3.5-5.1)
[2016-08-08 06:01] LABS: HEMATOCRIT 23.7 % (38.0-50.0); HEMOGLOBIN 7.6 gm/dL (13.0-16.0); MEAN CELL VOLUME 88.8 FL (83-96); MEAN CORPUSCULAR HEMOGLOBIN 28.3 PG (28-34); MEAN CORPUSCULAR HGB CONC 31.9 g/dL (30-36); MEAN PLATELET VOLUME 8.6 FL (6.5-11.5); RED BLOOD COUNT 2.67 X10e (3.90-5.60); RED CELL DISTRIBUTION WIDTH 17.1 % (11.0-15.5); WHITE BLOOD COUNT 2.9 X10e3 (4.0-10.5)
[2016-08-08 06:45] LABS: ALBUMIN SERUM 2.8 g/dL (3.5-5.0); BILIRUBIN,TOTAL 1.4 mg/dL (0.2-2.0); BUN/CREATININE RATIO 24.21; CALCIUM SERUM 8.2 mg/dL (8.4-10.2); CREATININE SERUM 1.9 mg/dL (0.6-1.4); GLOM FILT RATE Estimated 37.2 mL/min (>60); POTASSIUM 3.6 mmol/L (3.5-5.1); PROTEIN TOTAL SERUM 6.3 g/dL (6.0-8.3)
[2016-08-09 05:31] LABS: HEMATOCRIT 24.6 % (38.0-50.0); HEMOGLOBIN 7.8 gm/dL (13.0-16.0); MEAN CELL VOLUME 89.4 FL (83-96); MEAN CORPUSCULAR HEMOGLOBIN 28.5 PG (28-34); MEAN CORPUSCULAR HGB CONC 31.9 g/dL (30-36); MEAN PLATELET VOLUME 8.2 FL (6.5-11.5); RED BLOOD COUNT 2.76 X10e (3.90-5.60); RED CELL DISTRIBUTION WIDTH 17.8 % (11.0-15.5); WHITE BLOOD COUNT 3.2 X10e3 (4.0-10.5)
[2016-08-09 06:26] LABS: ALBUMIN SERUM 2.6 g/dL (3.5-5.0); BILIRUBIN,TOTAL 1.1 mg/dL (0.2-2.0); BUN/CREATININE RATIO 18.88; CREATININE SERUM 1.8 mg/dL (0.6-1.4); GLOM FILT RATE Estimated 39.7 mL/min (>60); POTASSIUM 3.8 mmol/L (3.5-5.1)
[2016-08-10 06:29] LABS: HEMATOCRIT 24.4 % (38.0-50.0); HEMOGLOBIN 7.7 gm/dL (13.0-16.0); MEAN CELL VOLUME 89.5 FL (83-96); MEAN CORPUSCULAR HEMOGLOBIN 28.2 PG (28-34); MEAN CORPUSCULAR HGB CONC 31.5 g/dL (30-36); MEAN PLATELET VOLUME 8.6 FL (6.5-11.5); RED BLOOD COUNT 2.72 X10e (3.90-5.60); RED CELL DISTRIBUTION WIDTH 17.6 % (11.0-15.5)
[2016-08-10 06:49] LABS: BUN/CREATININE RATIO 16.47; CALCIUM SERUM 7.9 mg/dL (8.4-10.2); CREATININE SERUM 1.7 mg/dL (0.6-1.4); GLOM FILT RATE Estimated 42.6 mL/min (>60)
[2016-08-10] MEDS ORDERED: BUMETANIDE1 MG PO (16:19)
== END 2016-08-10 19:43 | disposition home or self-care (01) | DRG 812 ==
LOC: C5B 05:45
PROVIDERS: Internal Medicine; Internal Medicine Gastroenterology
PROC: 30233N1 Transfusion of Nonautologous Red Blood Cells into Peripheral Vein, Percutaneous Approach (ICD-10-PCS; 2016-08-06)
PROC: 0DJD8ZZ Inspection of Lower Intestinal Tract, Via Natural or Artificial Opening Endoscopic (ICD-10-PCS; 2016-08-08)
PROC: 0W9G3ZZ Drainage of Peritoneal Cavity, Percutaneous Approach (ICD-10-PCS; principal; 2016-08-08 15:37)
PROC: 0DJ08ZZ Inspection of Upper Intestinal Tract, Via Natural or Artificial Opening Endoscopic (ICD-10-PCS; 2016-08-08 15:37)
DX: D50.9 Iron deficiency anemia, unspecified (principal); D61.818 Other pancytopenia; N17.9 Acute kidney failure, unspecified; E11.22 Type 2 diabetes mellitus with diabetic chronic kidney disease; N18.3 Chronic kidney disease, stage 3 (moderate); R18.8 Other ascites; E44.0 Moderate protein-calorie malnutrition; I25.10 Atherosclerotic heart disease of native coronary artery without angina pectoris; Z95.1 Presence of aortocoronary bypass graft; Z95.810 Presence of automatic (implantable) cardiac defibrillator; F17.210 Nicotine dependence, cigarettes, uncomplicated; I12.9 Hypertensive chronic kidney disease with stage 1 through stage 4 chronic kidney disease, or unspecified chronic kidney disease; E11.65 Type 2 diabetes mellitus with hyperglycemia; E03.9 Hypothyroidism, unspecified; I73.9 Peripheral vascular disease, unspecified; M10.9 Gout, unspecified; N40.0 Benign prostatic hyperplasia without lower urinary tract symptoms; Z79.01 Long term (current) use of anticoagulants; Z79.82 Long term (current) use of aspirin; E87.6 Hypokalemia
CPT/HCPCS: 76705; 80048; 80053; 82607; 82728; 82746; 82947; 83540; 83550; 83735; 84132; 85025; 85027; 85610; 86850; 86900; 86901; 86923; J0696; J2250; J2370; J2916; P9016